=== PATIENT | male | born 1965 | race Caucasian/White ===

== ENCOUNTER 2020-08-24 15:18 | Outpatient (REF) | payer MEDICAID, SELFPAY | END 2020-08-24 15:19 | disposition home or self-care (01) | LOC: HO.LAB 15:18 | PROVIDERS: Visit Provider Internal Medicine | DX: Z20.822 Contact with and (suspected) exposure to COVID-19 (principal) | CPT/HCPCS: 36415; C9803; U0003 ==

== ENCOUNTER 2020-12-03 18:13 | Emergency (ER) | payer MEDICAID, SELFPAY ==
--- NOTE | ~2020-12-03 | CT_ITS ---
EXAMINATION: CT HEAD WITHOUT CONTRAST CLINICAL INFORMATION: TIA with aphasia COMPARISON: 02/24/2011 TECHNIQUE: Contiguous axial imaging was performed from the skull base to vertex without intravenous administration of contrast. This CT examination was performed using dose optimization techniques as appropriate, variously including the following: *Automated exposure control *Adjustment of mA and/or kV according to patient size (this includes techniques or standardized protocols for targeted exams where dose is matched to indication/reason for exam; i.e. extremities or head) *Use of iterative reconstruction technique DLP: 742 mGy-cm FINDINGS: There is no evidence of acute intracranial hemorrhage or territorial infarction. No abnormal mass effect or midline shift is seen. [place]re[place] to white matter differentiation is well preserved. No extra-axial fluid collections are identified. The ventricles are normal in size. There is no abnormal attenuation within the brain parenchyma. The osseous structures and soft tissues are normal. The mastoid air cells and visualized portions of the paranasal sinuses are well aerated. CT/CT head/brain wo con IMPRESSION: No acute intracranial pathology.
[2020-12-03 18:46] VITALS: BP 141/92; PULSE 75; RESP 16; TEMP 37.2; O2SAT 95; BMI 37.0
--- NOTE | 2020-12-03 19:03 | ECG_ITS ---
Test Reason : R/O CVA Blood Pressure : / mmHG Vent. Rate : 068 BPM Atrial Rate : 068 BPM P-R Int : 164 ms QRS Dur : 136 ms QT Int : 420 ms P-R-T Axes : 057 062 008 degrees QTc Int : 446 ms Normal sinus rhythm Right bundle branch block Abnormal ECG No significant changes when compared with the previous EKG of 12 sep 2008 Referred By: Brandon Landis Electronically Signed By:YONATHAN SEGURA
--- NOTE | 2020-12-03 19:05 | ED.NEUROSD ---
HPI - Neuro Symptoms/Deficit General Chief Complaint: Stroke Stated Complaint: ams Time Seen by Provider: 12/03/20 19:03 Source: patient and family Mode of arrival: ambulatory Limitations: language barrier History of Present Illness HPI Narrative: Patient is 55 years old with history of high cholesterol and subdural? Intra cerebral bleed about 6 months ago comes here with according to his since 15:00 patient been confused does not know what is going on has slight slow speech by the time he came here patient aware what is happening now but does not know what happened in last 3 hours no focal deficit was noticed but patient was feeling foggy in his mind no seizures no focal weakness patient ambulated to the ER patient never had similar episodes in the past no headache no nausea no vomiting no chest pain no shortness of breath otherwise patient is feeling fine Related Data Allergies Allergy/AdvReac Type Severity Reaction Status Date / Time No Known Allergies Allergy Mild NONE Unverified 04/19/20 17:14 gemfibrozil Allergy Unknown rash Verified 01/07/19 00:00 [id number]-FNL-PLD reductase AdvReac Unknown transaminit Uncoded 01/07/19 00:00 inhi is Review of Systems Review of Systems: Constitutional : No Weight loss, No Fever, No Chills ENT/Mouth : No sore throat, No Rhinorrhea Eyes: No Eye Pain, No Swelling Cardiovascular : No Chest Pain, no palpitations Respiratory : No Cough, No Sputum, no shortness of breath Gastrointestinal : no Nausea, No Vomiting, No Diarrhea, No abdominal Pain, no black stools Genitourinary : No Dysuria, No Urinary Frequency Musculoskeletal : No joint pain, No Myalgias, No Joint Swelling Skin : No Skin Lesions, No rash Neuro : No Weakness, No Numbness, No Dizziness, No Headache Psych : No Anxiety/Panic, No Depression Heme/Lymph: No Bruising, No Lymphadenopathy Endocrine : No Polyuria, No Polydipsia All other systems reviewed and are negative [facility] Past Medical History Medical History Hypertension Hypothyroid Social History Social History Advance Directives: No Advance Directives Information Provided: Yes Physical Exam Vital Signs: Vital Signs: Last Vital Signs Temp 98.9 F 12/03/20 18:46 Pulse 75 12/03/20 18:46 Resp 16 12/03/20 18:46 BP 141/92 H 12/03/20 18:46 Pulse Ox 95 12/03/20 18:46 Body Mass Index 37.0 Appearance: Alert. Oriented X3. No acute distress. Eyes: PERRLA, No Nystagmus ENT: Pharynx normal. Oral Mucosa moist Neck: Normal inspection. Neck supple. CVS: Normal heart rate and rhythm. Pulses normal. Respiratory: No respiratory distress. Equal air entry bilateral, no wheezing/rales/rhonchi Abdomen: Soft and nontender. Bowel sounds are present, no mass palpable, no CVA tenderness Skin: Skin warm and dry. Normal skin color. Normal skin turgor. Extremities: No lower extremity edema. No calf tenderness Neuro: Oriented X 3. No motor deficit. No sensory deficit.No cerebellar signs , cranial nerves II-XII intact MDM - Neuro Symptoms/Deficit MDM Narrative Medical decision making narrative: Patient's CT scan negative for any acute stroke no focal neurological deficit patient's symptoms likely from global amnesia at this time patient is back to normal will discharge patient home advised to follow with PCP Lab Data Attestation: I reviewed the patient's lab results. Result diagrams: 12/03/20 19:30 12/03/20 19:30 Labs: Lab Results 12/03/20 12/03/20 12/03/20 Range/Units 19:21 19:30 19:30 WBC 10.3 (4.8-10.8) X10*3/uL RBC 4.98 (4.60-5.80) X10*6/uL Hgb 15.9 (14.0-18.0) g/dl Hct 45.8 (42-52) % MCV 92.0 (80-98) fL MCH 31.9 (27.0-33.0) pg MCHC 34.7 (31.0-36.0) g/dl RDW 12.0 (11.0-16.0) % Plt Count 270 (160-400) X10*3/uL MPV 10.2 (9.4-12.4) fL Immature Gran % (Auto) 0.5 H (0.0-0.4) % Neut % (Auto) 59.8 (45-73) % Lymph % (Auto) 31.0 (20-40) % [place] % (Auto) 7.2 (2-11) % Eos % (Auto) 1.0 (0-4) % Baso % (Auto) 0.5 (0-2) % Lymph # (Auto) 3.2 (1.2-4.9) X10*3/uL [place] # (Auto) 0.7 (0.1-1.2) X10*3/uL Eos # (Auto) 0.1 (0.0-0.4) X10*3/uL Baso # (Auto) 0.1 (0.0-0.2) X10*3/uL Abs Immat Gran (auto) 0.05 H (0.00-0.03) X10*3/uL Absolute Neuts (auto) 6.2 (2.0-8.3) X10*3/uL Absolute Nucleated RBC 0.000 (0.0-0.012) X10*3/uL Nucleated RBC % (auto) 0.0 (0.0-0.2) /100WBC PT (10.8-13.0) SEC INR (0.9-1.1) APTT (24.1-38.0) SEC Sodium 140 (135-145) mmol/L Potassium 5.0 (3.3-5.1) mmol/L Chloride 102 (96-108) mmol/L Carbon Dioxide 28 (22-29) mmol/L Anion Gap 15 (12-20) BUN 14 (9-16) mg/dL Creatinine 1.22 (0.5-1.4) mg/dL Estim Creat Clear Calc 76.3 Estimated GFR > 60 POC Glucose 93 (60-115) mg/dL Random Glucose 85 (60-115) mg/dL Calcium 9.5 (8.4-10.2) mg/dL Total Bilirubin 1.2 H (0.0-1.0) mg/dL Direct Bilirubin 0.4 (0.0-0.5) mg/dL AST 65 H (5-37) U/L ALT 61 H (0-40) U/L Alkaline Phosphatase 55 (39-117) U/L Troponin I High Sens (<3.5-35.0) ng/L Total Protein 7.5 (6.5-8.0) g/dL Albumin 4.2 (3.5-5.0) g/dL 12/03/20 12/03/20 Range/Units 19:30 19:30 WBC (4.8-10.8) X10*3/uL RBC (4.60-5.80) X10*6/uL Hgb (14.0-18.0) g/dl Hct (42-52) % MCV (80-98) fL MCH (27.0-33.0) pg MCHC (31.0-36.0) g/dl RDW (11.0-16.0) % Plt Count (160-400) X10*3/uL MPV (9.4-12.4) fL Immature Gran % (Auto) (0.0-0.4) % Neut % (Auto) (45-73) % Lymph % (Auto) (20-40) % [place] % (Auto) (2-11) % Eos % (Auto) (0-4) % Baso % (Auto) (0-2) % Lymph # (Auto) (1.2-4.9) X10*3/uL [place] # (Auto) (0.1-1.2) X10*3/uL Eos # (Auto) (0.0-0.4) X10*3/uL Baso # (Auto) (0.0-0.2) X10*3/uL Abs Immat Gran (auto) (0.00-0.03) X10*3/uL Absolute Neuts (auto) (2.0-8.3) X10*3/uL Absolute Nucleated RBC (0.0-0.012) X10*3/uL Nucleated RBC % (auto) (0.0-0.2) /100WBC PT 12.9 (10.8-13.0) SEC INR 1.1 (0.9-1.1) APTT 32.4 (24.1-38.0) SEC Sodium (135-145) mmol/L Potassium (3.3-5.1) mmol/L Chloride (96-108) mmol/L Carbon Dioxide (22-29) mmol/L Anion Gap (12-20) BUN (9-16) mg/dL Creatinine (0.5-1.4) mg/dL Estim Creat Clear Calc Estimated GFR POC Glucose (60-115) mg/dL Random Glucose (60-115) mg/dL Calcium (8.4-10.2) mg/dL Total Bilirubin (0.0-1.0) mg/dL Direct Bilirubin (0.0-0.5) mg/dL AST (5-37) U/L ALT (0-40) U/L Alkaline Phosphatase (39-117) U/L Troponin I High Sens 4.5 (<3.5-35.0) ng/L Total Protein (6.5-8.0) g/dL Albumin (3.5-5.0) g/dL NIH Stroke Scale Internal: Initial- Upon Arrival Level of Consciousness: Alert Level of Consciousness Questions: Answers both questions correctly Level of Consciousness Commands: Performs both tasks correctly Best Gaze: Normal Visual: No visual loss Facial Palsy: Normal Motor Arm (Right): No drift Motor Arm (Left): No drift Motor Leg (Right): No drift Motor Leg (Left): No drift Limb Ataxia: Absent Sensory: Normal Best Language: No aphasia Dysarthia: Normal Extinction and Inattention: No abnormality Score: 0 Discharge Plan Discharge Clinical Impression: Amnesia, global, transient Patient Disposition: Home, Self-Care Instructions: Transient Global Amnesia (ED) Additional Instructions: Your symptoms likely transient and you will recover slowly. Report to the ER/PCP if any focal weakness speech problems or seizure Es probable que ana maria s?ntomas tena transitorios y se recuperar? lentamente. Informe a la deshawn de emergencias / PCP si presenta alguna debilidad focal, problemas del habla o convulsiones. Print Language: Kiswahili
[2020-12-03 19:25] LABS: Glucose, Whole Blood 93 mg/dL (60-115)
--- NOTE | 2020-12-03 19:30 | PC.NURSE ---
Addendum entered by Devon Ma RN 12/03/20 19:37: pt physical neuro assessment intact. pt able to open and close both eyes on command, able to smile and stick out tongue. no facial drooping noted. pt able to move upper and lower extremities bilaterally and able to squeeze this nurses fingers bilaterally. pt alert and oriented to self and location but not oriented to time. unable to state the day of the week or the year. no slurred speech noted. Original Note: alarm technician at bedside obtaining EKG pt lined and labs sent to lab neuro assessment intact at this time
[2020-12-03 19:39] LABS: MANUAL DIFF FLAG NO
[2020-12-03 19:43] LABS: Basophils Absolute Auto 0.1 X10*3/uL (0.0-0.2); Basophils Percent Auto 0.5 % (0-2); Eosinophils Absolute Auto 0.1 X10*3/uL (0.0-0.4); Hematocrit 45.8 % (42-52); Hemoglobin 15.9 g/dl (14.0-18.0); Imm Gran Abs Auto 0.05 X10*3/uL (0.00-0.03); Imm Gran Pct Auto 0.5 % (0.0-0.4); Lymphocytes Absolute Auto 3.2 X10*3/uL (1.2-4.9); Mean Corpuscular HGB Conc 34.7 g/dl (31.0-36.0); Mean Corpuscular Hemoglobin 31.9 pg (27.0-33.0); Mean Platelet Volume 10.2 fL (9.4-12.4); Monocytes Absolute Auto 0.7 X10*3/uL (0.1-1.2); Monocytes Percent Auto 7.2 % (2-11); Neutrophils Absolute Auto 6.2 X10*3/uL (2.0-8.3); Neutrophils Percent Auto 59.8 % (45-73); Platelet Count 270 X10*3/uL (160-400); Red Blood Count 4.98 X10*6/uL (4.60-5.80); White Blood Count 10.3 X10*3/uL (4.8-10.8)
[2020-12-03 19:51] LABS: INTERNATIONAL NORM RATIO 1.1 (0.9-1.1); Prothrombin Time 12.9 SEC (10.8-13.0)
[2020-12-03 19:54] LABS: Partial Thromboplastin Time 32.4 SEC (24.1-38.0)
[2020-12-03 20:08] LABS: Alanine Aminotransferase 61 U/L (0-40); Albumin Level 4.2 g/dL (3.5-5.0); Alkaline Phosphatase 55 U/L (39-117); Anion Gap 15 (12-20); Aspartate Amino Transferase 65 U/L (5-37); Bilirubin Direct 0.4 mg/dL (0.0-0.5); Bilirubin Total 1.2 mg/dL (0.0-1.0); Blood Urea Nitrogen 14 mg/dL (9-16); Calcium 9.5 mg/dL (8.4-10.2); Carbon Dioxide 28 mmol/L (22-29); Chloride 102 mmol/L (96-108); Creatinine Clr Calc Pharmacy 76.3; Estimated Glomerular Filt Rate > 60; Glucose Random 85 mg/dL (60-115); Sodium 140 mmol/L (135-145); Total Protein 7.5 g/dL (6.5-8.0)
[2020-12-03 20:12] LABS: Troponin-I High Sensitivity 4.5 ng/L (<3.5-35.0)
[2020-12-03 21:27] VITALS: BP 144/99; PULSE 63; RESP 18; O2SAT 98
== END 2020-12-03 21:39 | disposition home or self-care (01) ==
PROVIDERS: Emergency Provider Internal Medicine; PCP Internal Medicine
DX: G45.4 Transient global amnesia (principal)
CPT/HCPCS: 36415; 70450; 80048; 80076; 82947; 84484; 85025; 85610; 85730; 93005; 99284

== ENCOUNTER 2021-01-03 15:38 | Outpatient (REF) | payer MEDICAID, SELFPAY | END 2021-01-03 15:39 | disposition home or self-care (01) | LOC: HO.LAB 15:38 | PROVIDERS: Visit Provider Internal Medicine | DX: Z20.822 Contact with and (suspected) exposure to COVID-19 (principal) | CPT/HCPCS: C9803; U0003; U0005 ==

== ENCOUNTER 2021-01-04 19:21 | Outpatient (REF) | payer MEDICAID, SELFPAY ==
--- NOTE | ~2021-01-04 | MR_ITS ---
EXAMINATION: MR BRAIN WITHOUT AND WITH CONTRAST CLINICAL INFORMATION: 55-year-old with transient global amnesia. COMPARISON: 03/17/2020 CT, 02/24/2011 MRI. TECHNIQUE: Multiplanar, multisequence MRI of the brain/sella was obtained before and after the intravenous administration of 5 mL Gadavist. FINDINGS: Redemonstrated is an enlarged sella turcica, stable from previous study. 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 The pituitary gland enhances along the floor of the sella with a very thin elongated appearance. There is prominence of the optic recess of the anteroinferior third ventricle which is stable. There may be some tethering or traction on the prechiasmatic optic nerves. DWI sequence demonstrates no restricted diffusion. Specifically, there is no evidence for recent or acute infarcts. There are scattered small, nonenhancing T2 hyperintensities in the subcortical white matter of both cerebral hemispheres, largely unchanged from previous exam, which are nonspecific findings. No intracranial mass lesion, abnormal enhancement, extra-axial fluid collections, space-occupying process or mass effect are identified. The ventricular system and subarachnoid spaces are stable in appearance, without hydrocephalus. Normal signal voids are seen in the visualized major intracranial vessels. Small effusion in the right mastoid is stable from previous exam. There is minor mucosal thickening in the ethmoid complex and small retention cysts in the maxillary sinuses, the latter of which are stable. MR/MR head/brain wo/w con IMPRESSION: 1. Scattered nonenhancing nonspecific subcortical white matter T2 hyperintensities in the cerebral hemispheres bilaterally which are stable from previous exam. 2. No intracranial mass lesion, abnormal enhancement, extra-axial fluid collection, space-occupying process or mass effect. 3. 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
== END 2021-01-04 19:22 | disposition home or self-care (01) ==
LOC: HO.MRI 19:21
PROVIDERS: Visit Provider Internal Medicine
DX: G45.4 Transient global amnesia (principal)
CPT/HCPCS: 70553; A9585

== ENCOUNTER 2021-12-19 13:24 | Emergency (ER) | payer MEDICAID, SELFPAY ==
--- NOTE | ~2021-12-19 | CT_ITS ---
EXAMINATION: CT ABDOMEN AND PELVIS WITHOUT CONTRAST CLINICAL INFORMATION: Flank pain COMPARISON: June 06, 2011 TECHNIQUE: Multidetector volumetric imaging was performed from the superior aspect of the liver through the pubic symphysis. Sagittal and coronal reformatted images were obtained on the technologist's workstation. This CT examination was performed using dose optimization techniques as appropriate, variously including the following: *Automated exposure control *Adjustment of mA and/or kV according to patient size (this includes techniques or standardized protocols for targeted exams where dose is matched to indication/reason for exam; i.e. extremities or head) *Use of iterative reconstruction technique DLP: 667 mGy-cm FINDINGS: LUNG BASES: There is bilateral dependent groundglass opacity consistent with atelectasis. Heart normal size. No pericardial effusion. No pleural effusion. LIVER, GALLBLADDER, AND BILIARY TREE: The liver is normal in size, shape, and attenuation. No focal hepatic lesion or biliary ductal dilatation is present. The gallbladder is unremarkable with no evidence of radiopaque gallstones, gallbladder wall thickening, or obvious pericholecystic inflammatory changes. PANCREAS: Unremarkable. No abnormal mass or peripancreatic inflammatory change. SPLEEN: Unremarkable. ADRENAL GLANDS: Unremarkable. KIDNEYS AND URETERS: The kidneys are normal in size, shape, and attenuation. No hydronephrosis, hydroureter, or calculi seen. No perinephric stranding. BLADDER: Unremarkable. GASTROINTESTINAL TRACT: No dilated loops of large or small bowel are evident. No free air or free fluid identified. There is diverticulosis of the colon without evidence of acute diverticulitis. No pericolonic inflammatory changes seen. The appendix is visualized and appears unremarkable. ABDOMINAL WALL: No significant hernia is appreciated. LYMPH NODES: There are some prominent bilateral inguinal lymph nodes present. No peritoneal adenopathy identified. VASCULAR: Unremarkable. PELVIC VISCERA: Unremarkable. OSSEOUS STRUCTURES: There is a mild superior endplate compression fracture of T11 with approximately 20% loss of height. There is degenerative change with spurring seen at T10-T12. The fracture may be chronic. No suspicious destructive bony lesions identified. CT/CT abdomen pelvis wo con IMPRESSION: No evidence of obstructive uropathy or nephrolithiasis. Colonic diverticulosis without evidence of acute diverticulitis. Superior endplate compression fracture of T11 of uncertain duration but likely chronic. Fleischner guidelines were followed.
[2021-12-19 13:57] VITALS: BP 150/81; PULSE 65; RESP 18; TEMP 36.1; O2SAT 100; BMI 38.7
[2021-12-19 14:13] LABS: MANUAL DIFF FLAG NO
[2021-12-19 14:14] LABS: Basophils Percent Auto 0.3 % (0-2); Eosinophils Absolute Auto 0.2 X10*3/uL (0.0-0.4); Eosinophils Percent Auto 2.1 % (0-4); Imm Gran Abs Auto 0.07 X10*3/uL (0.00-0.03); Imm Gran Pct Auto 0.7 % (0.0-0.4); Lymphocytes Absolute Auto 1.9 X10*3/uL (1.2-4.9); Lymphocytes Percent Auto 19.3 % (20-40); Mean Corpuscular HGB Conc 34.8 g/dl (31.0-36.0); Mean Corpuscular Hemoglobin 31.6 pg (27.0-33.0); Mean Corpuscular Volume 90.9 fL (80.0-98.0); Mean Platelet Volume 10.2 fL (9.4-12.4); Monocytes Absolute Auto 0.6 X10*3/uL (0.1-1.2); Monocytes Percent Auto 6.1 % (2-11); Neutrophils Absolute Auto 6.9 x10*3/uL (2.0-8.3); Neutrophils Percent Auto 71.5 % (45-73); Platelet Count 211 X10*3/uL (160-400); Red Blood Count 5.06 X10*6/uL (4.60-5.80); Red Cell Distribution Width 12.8 % (11.0-16.0); White Blood Count 9.7 X10*3/uL (4.8-10.8)
[2021-12-19 14:15] LABS: Appearance Urine HAZY; Glucose Urine UA NEG (NEG); Leukocyte Esterase Urine NEG (NEG); Nitrite Urine NEG (NEG); Urine Blood NEG (NEG); Urine Ketones NEG (NEG); Urine Protein NEG (NEG-TRACE)
[2021-12-19 14:17] LABS: Color Urine YELLOW
[2021-12-19 14:29] LABS: Anion Gap 9 (12-20); Blood Urea Nitrogen 13 mg/dL (9-16); Calcium 9.4 mg/dL (8.4-10.2); Carbon Dioxide 28 mmol/L (22-29); Chloride 105 mmol/L (96-108); Creatinine Clr Calc Pharmacy 81.3; Estimated Glomerular Filt Rate > 60; Glucose Random 164 mg/dL (60-115); Potassium 4.1 mmol/L (3.3-5.1); Sodium 138 mmol/L (135-145)
--- NOTE | 2021-12-19 15:29 | ED_ITS ---
HPI - Abdominal Pain General Chief Complaint: Abdominal Pain Stated Complaint: l side pain Time Seen by Provider: 12/19/21 15:28 Source: patient Mode of arrival: ambulatory Limitations: no limitations History of Present Illness HPI narrative: 56 yo male with history of HLD, panhypopituitary?, adrenal insufficiency who presents to the ER with 4 days of worsening left flank pain. He reports the pain came on gradually and has been worsening for the last 4 days. He reports it is wose with movement, coughing, and palpation. No nausea, vomiting, diarrhea, fever, chills, urinary symptoms. He denies any known injury or heavy lifting. No falls. He denies any chest pain or shortness of breath. MD elicited complaint: flank pain Pertinent past history: none Onset (ago): day(s) (4) Pain Consistency: constant Location: L flank Severity: severe Pain scale (0-10): 8 Quality: sharp Radiation: LUQ Migration to: no migration Exacerbating factors: movement Relieving factors: rest Associated symptoms: denies other symptoms Related Data Previous Rx's Medication Instructions Recorded cyclobenzaprine 10 mg tablet 10 mg PO TID PRN #10 tab 12/19/21 oxycodone 5 mg tablet 5 mg PO TID PRN #7 tab 12/19/21 Allergies Allergy/AdvReac Type Severity Reaction Status Date / Time No Known Allergies Allergy Mild NONE Unverified 04/19/20 17:14 gemfibrozil Allergy Unknown rash Verified 01/07/19 00:00 [id number]-[id number] reductase AdvReac Unknown transaminit Uncoded 01/07/19 00:00 inhi is Review of Systems Review of Systems Constitutional: No Fever, No Chills ENT/Mouth: No sore throat, No Rhinorrhea, No Swallowing Difficulty Cardiovascular: No Chest Pain, No SOB, No Orthopnea, No Edema Respiratory: No Cough, No Sputum, No Wheezing, No dyspnea Gastrointestinal: No Nausea, No Vomiting, No Diarrhea, + abdominal Pain, No Hematochezia, No Melena Genitourinary: No Dysuria, No Urinary Frequency, No Hematuria Musculoskeletal: No joint pain, No Myalgias, +Back pain Skin: No Skin Lesions, No rash Neuro: No Weakness, No Numbness, No Dizziness, No Headache Psych: No Anxiety/Panic, No Depression Heme/Lymph: No Bruising, No Lymphadenopathy Endocrine: No Polyuria, No Polydipsia [facility] Past Medical History Medical History Hypertension Hypothyroid Social History Social History Advance Directives: No Advance Directives Information Provided: No Physical Exam ED Vital Signs: Vital Signs - 24 hr 12/19/21 13:57 Temperature 96.9 F Pulse Rate 65 Respiratory Rate 18 Blood Pressure 150/81 H Pulse Oximetry 100 BMI result Body Mass Index 38.7 Appearance: Alert. Oriented X3. No acute distress. Eyes: Pupils equal, round and reactive to light. ENT: Pharynx normal. Neck: Normal inspection. Neck supple. CVS: Normal heart rate and rhythm. Pulses normal. Respiratory: No respiratory distress. Breath sounds normal. Abdomen: Soft with moderate LUQ tenderness, normal. +BS x4 Back: +CVA tenderness on the left Skin: Skin warm and dry. Normal skin color. Normal skin turgor. No rashes. Extremities: No lower extremity edema. Neuro: Oriented X 3. No motor deficit. No sensory deficit. Course Course Course Narrative: 56-year-old male presents the ER with 4 days of left flank and left upper quadrant pain. No urinary symptoms. No nausea, vomiting, diarrhea, fever, chills. He has tenderness on examination but otherwise appears well. Vital signs are normal. Will get basic lab workup, UA and CT scan for further evalu ation. Reevaluation(s) Reevaluation #1: Urinalysis is negative for infection. His CT scan is showing a chronic T11 mild compression deformity. Otherwise no acute intra-abdominal pathology. He is feeling better after oxycodone. Possible muscular etiology of his pain, we will send home with muscle relaxer and pain medication, encourage follow-up with his primary care doctor as soon as possible. Return precautions were discussed. MDM - Abdominal Pain Lab Data Result diagrams: 12/19/21 14:04 12/19/21 14:04 Labs: Lab Results 12/19/21 12/19/21 12/19/21 Range/Units 14:04 14:04 14:08 WBC 9.7 (4.8-10.8) X10*3/uL RBC 5.06 (4.60-5.80) X10*6/uL Hgb 16.0 (14.0-18.0) g/dl Hct 46.0 (42.0-52.0) % MCV 90.9 (80.0-98.0) fL MCH 31.6 (27.0-33.0) pg MCHC 34.8 (31.0-36.0) g/dl RDW 12.8 (11.0-16.0) % Plt Count 211 (160-400) X10*3/uL MPV 10.2 (9.4-12.4) fL Immature Gran % (Auto) 0.7 H (0.0-0.4) % Neut % (Auto) 71.5 (45-73) % Lymph % (Auto) 19.3 L (20-40) % [place] % (Auto) 6.1 (2-11) % Eos % (Auto) 2.1 (0-4) % Baso % (Auto) 0.3 (0-2) % Lymph # (Auto) 1.9 (1.2-4.9) X10*3/uL [place] # (Auto) 0.6 (0.1-1.2) X10*3/uL Eos # (Auto) 0.2 (0.0-0.4) X10*3/uL Baso # (Auto) 0.0 (0.0-0.2) X10*3/uL Abs Immat Gran (auto) 0.07 H (0.00-0.03) X10*3/uL Absolute Neuts (auto) 6.9 (2.0-8.3) x10*3/uL Absolute Nucleated RBC 0.000 (0.0-0.012) X10*3/uL Nucleated RBC % (auto) 0.0 (0.0-0.2) /100WBC Sodium 138 (135-145) mmol/L Potassium 4.1 (3.3-5.1) mmol/L Chloride 105 (96-108) mmol/L Carbon Dioxide 28 (22-29) mmol/L Anion Gap 9 L (12-20) BUN 13 (9-16) mg/dL Creatinine 1.16 (0.5-1.4) mg/dL Estim Creat Clear Calc 81.3 Estimated GFR > 60 Random Glucose 164 H D (60-115) mg/dL Calcium 9.4 (8.4-10.2) mg/dL Urine Color YELLOW Urine Appearance HAZY Urine pH 6.0 (5.0-8.0) Ur Specific [place] 1.020 (1.005-1.025) Urine Protein NEG (NEG-TRACE) MG/DL Urine Glucose (UA) NEG (NEG) MG/DL Urine Ketones NEG (NEG) MG/DL Urine Blood NEG (NEG) Urine Nitrite NEG (NEG) Ur Leukocyte Esterase NEG (NEG) Critical Care Time Critical Care Time Critical Care Time: No Discharge Plan Discharge Clinical Impression: Abdominal pain Patient Disposition: Home, Self-Care Instructions: Abdominal Pain (ED) Additional Instructions: Your workup today was unremarkable. Your CT scan did not show any acute causes of your pain. Recommend taking the prescribed medications as needed for pain and discomfort. Recommend following up with your doctor as soon as possible. If you develop new or worsening symptoms call 911 or come back to the ER for further evaluation. Prescriptions: New oxycodone 5 mg tablet 5 mg PO TID PRN (Reason: pain) Qty: 7 0RF cyclobenzaprine 10 mg tablet 10 mg PO TID PRN (Reason: muscle spasm) Qty: 10 0RF Referrals: Venkata Moore MD [Primary Care Provider] - (left sided flank and LUQ abd pain) Interventions: ED Discharge Assessment Last Done: 12/19/21 19:26 Discharge Date/Time: 12/19/21 19:29 Print Language: Amharic
[2021-12-19] MEDS: oxyCODONE HCl Immed Release 5 MG TABLET PO (18:14)
== END 2021-12-19 19:29 | disposition home or self-care (01) ==
PROVIDERS: Emergency Provider Emergency Medicine; PCP Internal Medicine
DX: R10.32 Left lower quadrant pain (principal); Z79.899 Other long term (current) drug therapy
CPT/HCPCS: 36415; 74176; 80048; 81003; 85025; 99282; 99284

== ENCOUNTER 2023-12-25 08:20 | Outpatient (REF) | payer MEDICAID, SELFPAY ==
[2023-12-25 11:47] LABS: Estimated Average Glucose 120 mg/dL; Hemoglobin A1c % 5.8 % (<6.0)
[2023-12-25 11:51] LABS: Anion Gap 11 (12-20); Blood Urea Nitrogen 15 mg/dL (9-16); Calcium 9.1 mg/dL (8.4-10.2); Carbon Dioxide 28 mmol/L (22-29); Chloride 106 mmol/L (96-108); Cholesterol 148 mg/dL (<200); Estimated Glomerular Filt Rate > 60; Glucose Random 89 mg/dL (60-115); HDL Cholesterol 37 mg/dL (>40); LDL Cholesterol Calculated 62 mg/dL (<100); Potassium 4.1 mmol/L (3.3-5.1); Sodium 141 mmol/L (135-145); Triglycerides 248 mg/dL (<150)
== END 2023-12-25 08:21 | disposition home or self-care (01) ==
LOC: HO.HHCL 08:20
PROVIDERS: Visit Provider Internal Medicine
DX: Z00.00 Encounter for general adult medical examination without abnormal findings (principal); E78.1 Pure hyperglyceridemia; I10 Essential (primary) hypertension
CPT/HCPCS: 36415; 80048; 80061; 83036

== ENCOUNTER 2024-11-22 08:13 | Outpatient (REF) | payer MEDICAID, SELFPAY ==
--- OUTSIDE RECORDS SUMMARY | 2024-11-22 08:30 | XMS_ITS | Encounter Summary ---
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 Name Role Phone Venkata Aviles MD Primary Care Provide r John Lazar PharmD Unavailable [phone] Paula Reyes PharmD Unavailable [phone] Reason for Visit * Reason Comments Med Refill Encounter Details Date Type Department Care Team (Late st Contact Info) Description 10/20/2022 Refill [facility] [address], [place] [phone] Venkata Aviles MD [address] [place], [place] [phone] Social History Tobacco Use Types Packs/Day Years Used Date Smoking Tobacco: Never Assessed Sex and Gender Information Value Date Recorded Sex Assigned at Male 06/02/2022 10:18 AM EDT Legal Sex Male 10:18 AM EDT Gender Identity Male 06/02/2022 10:18 AM EDT Sexual Orientation Choose not to disclose 2021 10:18 AM EDT documented as of this encounter Plan of Treatment Upcoming Encounters Date Type Department Care Team (Late st Contact Info) Description 12/07/2024 10:30 AM EDT Medication Management [facility] [address], [place] [phone] 01/12/2025 2:00 PM EDT Office Visit [facility] [address] [place], [place] [phone] Pat Brandon, OD [address] [place] [id number] documented as of this encounter Visit Diagnoses Not on filedocumented in this encounter Care Teams Piped Pocket Machine Operator Relationship Specialty Start Date End Date Venkata Aviles MD [address] [place] [phone] PCP - General Internal Medicine 05/17/14 John Lazar, CamachoD [address] [place] [phone] Pharmacist Internal Medicine 12/15/22 11/06/24 Paula Reyes PharmD [address] [place] [phone] Pharmacist Internal Medicine 11/07/24 documented as of this encounter
--- OUTSIDE RECORDS SUMMARY | 2024-11-22 08:30 | XMS_ITS | Encounter Summary ---
Author Organization [employer] Address [address] [facility] [address] [place] [address] Care Team Providers Care Head Scorer Name Role Phone Venkata Aviles MD Primary Care Provide r John Lazar PharmD Unavailable [phone] Paula Reyes PharmD Unavailable [phone] Reason for Visit * Reason Comments Med Refill Encounter Details Date Type Department Care Team (Late Contact Info) Description 10/02/2023 Refill [facility] MED & PEDS [address] [place] [address] Venkata Aviles MD [address] [place], [place] [phone] Primary hypertension Social History Tobacco Use Types Packs/Day Years Used Date Smoking Tobacco: Never Smokeless Tobacco: Never Alcohol Use Standard Drinks/Week Comments Yes 0 (1 standard drink = 0.6 oz pur e alcohol) socially; about 1x month Sex and Gender Information Value Date Recorded Sex Assigned at Male 06/02/2022 10:18 AM EDT Legal Sex Male 10:18 AM EDT Gender Identity Male 06/02/2022 10:18 AM EDT Sexual Orientation Choose not to disclose 2021 10:18 AM EDT documented as of this encounter Plan of Treatment Upcoming Encounters Date Type Department Care Team (Late Contact Info) Description 12/07/2024 10:30 AM EDT Medication Management [facility] MEDICINE [address] [place], [place] [phone] 01/12/2025 2:00 PM EDT Office Visit [facility] [address] [place], [place] [phone] Pat Brandon, OD [address] [place] [address] documented as of this encounter Goals Goal Patient Goal Type Associated Problems Recent Progress Patient-Stated? Author Blood Pressure < 140/90 Blood Pressure Benign hypertension 148/90(2024 11:22 AM EDT) No John Lazar, PharmRaheem documented as of this encounter Visit Diagnoses Diagnosis Primary hypertension Unspecified essential hypertension documented in this encounter Care Teams Head Scorer Relationship Specialty Start Date End Date Venkata Aviles MD [address] [place] [address] PCP - General Internal Medicine 05/17/14 John Lazar, PharmD [address] [place] [address] Pharmacist Internal Medicine 12/15/22 11/06/24 Paula Reyes, CamachoD [address] [place], [place] [phone] Pharmacist Internal Medicine 11/07/24 documented as of this encounter
--- OUTSIDE RECORDS SUMMARY | 2024-11-22 08:30 | XMS_ITS | Encounter Summary ---
Author Organization [employer] Address [address] [place] [address] Care Team Providers Care Patient Transition Specialist Name Role Phone Venkata Aviles MD Primary Care Provide r John Lazar PharmD Unavailable [phone] Paula Reyes PharmD Unavailable [phone] Reason for Visit * Reason Comments Med Refill Encounter Details Date Type Department Care Team (Late st Contact Info) Description 06/02/2024 Refill [facility] MEDICINE [address] [place] [address] Princess Munoz MD [address] [place] [address] Hypertriglyceridemia Social History Tobacco Use Types Packs/Day Years [...] AM EDT documented as of this encounter Miscellaneous Notes * Telephone Encounter - Venkata Warren MD - 06/02/2024 11:32 AM EDT I have not seen patients in 2 years, Pt needs to make an appointment to be seen. documented in this encounter Plan of Treatment Upcoming Encounters Date Type Department Care Team (Late st Contact Info) Description 12/07/2024 10:30 AM EDT Medication Management [facility] MEDICINE [address] [place] [address] 01/12/2025 2:00 PM EDT Office Visit [facility] OPTOMETRY [address] [place] [address] Aleksandr, Pat, OD [address] [place] [address] documented as of this encounter Goals Goal Patient Goal Type Associated Problems Recent Progress Patient-Stated? Author Blood Pressure < 140/90 Blood Pressure Benign hypertension 148/90(2024 11:22 AM EDT) No John Lazar, Keith documented as of this encounter Visit Diagnoses Diagnosis Hypertriglyceridemia Pure hyperglyceridemia documented in this encounter Care Teams Patient Transition Specialist Relationship Specialty Start Date End Date Venkata Aviles MD [address] [place] [address] PCP - General Internal Medicine 05/17/14 John Lazar, PharmD [address] [place] [phone] Pharmacist Internal Medicine 12/15/22 11/06/24 Paula Reyes PharmD [address] [place] [phone] Pharmacist Internal Medicine 11/07/24 documented as of this encounter
--- OUTSIDE RECORDS SUMMARY | 2024-11-22 08:30 | XMS_ITS | Clinical Summary ---
Author Organization [employer] Address [address] [place] [address] [address] [place] [address] Care Team Providers Care Vegetable Preparer Name Role Phone Venkata Aviles MD Primary Care Provide r Paula Reyes PharmD Unavailable [phone] Allergies Active Allergy Reactions Criticality Noted Date Comments Gemfibrozil Rash Low Statins Other reaction(s): transaminitis Medications hydrocortisone (Cortef) 10 MG tablet PLEASE SEE ATTACHED FOR DETAILED DIRECTIONS 022 Active B-D UF III MINI PEN NEEDLES 31G X 5 MM misc USE WITH GENOTROPIN PEN AND CARTRIDGE FOR DAILY INJECTIONS 023 Active levothyroxine (Synthroid, Levoxyl) 100 MCG tablet TOME MARGO TABLETA TODOS LOS D EN LA MA TRINY 30 MINS BEFORE DRINK/FOOD 023 Active metoprolol tartrate (Lopressor) 25 MG tablet TOME MARGO TABLETA DOS VECES AL D A CON ALIMENTO 023 Active Genotropin 5 MG cartridge INJECT 0.2 MG SUBCUTANEOUS EVERY DAY 023 Active AndroGel Pump 20.25 MG/ACT (1.62%) gel PLACE 2 PUMPS TO ONE SHOULDER AND 1 PUMP TO THE OTHER SHOULDER ONCE DAILY IN THE MORNING 023 Active lisinopril 40 MG tabletIndicatio ns:Primary hypertension TAKE 1 TABLET BY MOUTH EVERY DAY 90 tablet 3 024 Active fenofibrate micronized (Lofibra) 134 MG capsuleIndicati ons:Hypertrigly ceridemia TAKE 1 CAPSULE BY MOUTH EVERY DAY 90 capsule 1 024 Active cholecalciferol VITAMIN D (Vitamin D-3) 50 MCG (2000 UT) capsule Take 2,000 Units by mouth Once per day. 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 Pts friend brought him home. According to pt was crying because he did not remember anything that happened that morning. He was transported to the ER but pt does not remember anything that happened including how he got to the ER or what happened in the ER. In the ER pt had a Brain CT that per ER report showed no acute finding At our last televisit he told me he was back to normal, although still does not recall what happenned for a period of several hours on 12/03/2020 Etiology? TGA ? TIA? VS Lacuna Infarct ? VS epilepsy ? Last visit I recommended a Neurology Evaluation and an MRI of Brain MRI was done 01/04/2021 and showed: 1. Scattered nonenhancing nonspecific subcortical white matter T2 hyperintensities in the cerebral hemispheres bilaterally which are stable from previous exam. 2. No intracranial mass lesion, abnormal enhancement, extra-axial fluid collection, space-occupying process or mass effect. 3. 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 Back then he told me he had an appointment with Neurology scheduled for January 18 but he had to leave for [place] and he was going to call and reschedule the appointment. denies any further episodes. We contacted the office of his Neurologist and asked them to review his MRI and schedule a f/u visit to address the issue of TGA. The Dr review the MRI and told his staff that it was not urgent so they were going to contact patient for a f/u appointment Pt was seen and they ordered an EEG to r/o seizure disorder. Records requested Chronic subdural hematoma 06/16/2024 Assessment & Plan (06/16/2024 11:43 AM EST): Previously diagnosed with this at [facility] Unclear etiology, pt did not recall any recent head trauma , although he believes he might have had a head trauma years ago ( details are vague ) He denies, any weakness, no numbness, no slurred speech. Pt no longer on Keppra 500 mg po BID per Neurosurgery recommendations Pt had a repeat non contrast Brain CT 04/26/[address] Shakeel Maza that was read as NORMAL Per pts report he was seen by Dr Maza who Instructed pt that if he had any recurrence of symptoms to present himself immediately to [facility] ER. otherwise he recommended no further intervention Other osteoporosis without current pathological fracture 06/16/2024 Assessment & Plan (06/16/2024 11:47 AM EST): DEXA done at [facility] 09/02/13 showed osteopetrosis at L1-L4 with T-score of -2.8. On vitamin D and will follow with endocrinology. Acquired hypothyroidism 06/16/2024 Assessment & Plan (06/16/2024 11:55 AM EST): On levothyroxine 100 mcg daily, under the care [place] [facility] [place] Preventative health care 12/15/2022 Assessment & Plan (06/16/2024 12:04 PM EST): ROSALINA: 10/31/2014 Normal Colonoscopy: Hx of Tubular adenoma Last colonoscopy in 2012 NL ,5 year f/u. Pt was scheduled last visit he missed the appointment. Pt refuses to have it done. Assessment & Plan (12/15/2022 2:57 PM EDT): - Due for Shingrix #2 (administered today) - Due for Tdap; scheduled for next month 01/15 9:00 AM - A1c ordered Central hypogonadism 12/23/2018 Assessment & Plan (06/16/2024 11:56 AM EST): On Androgel 1.62% with 3 pumps daily Schizoaffective disorder, depressive type 2018 Assessment & Plan (06/16/2024 11:38 AM EST): Under the care of N, He follows with [facility] for his Hx of Depression I had been prescribing Ambien 5mg to use as needed. Cardiomyopathy 05/04/2018 Assessment & Plan (06/16/2024 12:02 PM EST): EKG showed RBBB and flat and inverted T waves in lateral leads . Given his Hx of Muscular dystrophy I referred patient to Cardiology for evaluation. He was last seen 03/10/2024. Cardiomyopathy likely nonischemic in the setting of muscular dystrophy. [facility] recommended Cardiac MRI and f/u with Dr Simon after testing. Given his hx of muscular dystrophy and biopsy findings stock holder recommended against statins. There was also a question of ASD L to R shunt by doppler on ECHO they recommended to repeat ECHO with bubble study in 3 months. He had it done 09/14/2018 and ECHO showed NO intracardiac shunt. Pt to continue to follow with Cardiology, pt was last seen 03/10/2024 Muscular dystrophy 11/05/2017 Assessment & Plan (06/16/2024 11:41 AM EST): Seen by Neurology last note on reconrd 08/24/2020 with no change in his strength. Muscle biopsy with rare rimed vacuoles. He recommended yearly EKGs and 1 to 2 years f/u with them. Record requested Obstructive sleep apnea syndrome 08/27/2017 Assessment & Plan (06/16/2024 11:46 AM EST): Confirmed with Sleep study. Cpap machine use oer his report Right hydrocele 05/10/2015 Assessment & Plan (06/16/2024 11:47 AM EST): Repeat Testicular U/S done on 11/2014showed large hydrocele and calcifications. Pt has never had a formal urologic consultation so pt was referred, unclear if he kept the appointment Hypertriglyceridemia 05/20/2013 Assessment & Plan (06/16/2024 11:49 AM EST): Patient with elevated lipids. Most recent lipid profile from: Lab Results Component Value Date TRIG 248 (H) 12/25/2023 CHOL 148 12/25/2023 LDLCHOLCAL 62 12/25/2023 HDL 37 (L) 12/25/2023 He is on a regimen of: Fenofibrate 145 mg po daily. advised to try to adhere to a low cholesterol diet, counseled and educated about diet and exercise. Empty sella syndrome 08/04/2012 Assessment & Plan (06/16/2024 11:54 AM EST): Followed by Endocrinology with empty sella. Pt is taking Hydrocortisone 10 mg BID and is aware of need of stress doses if illness. MRI done on 03/16/2024 shows chronic expanded empty sella turcica with prolapse of the optic chiasm unchanged from exam at [facility] with empty sella turcica, probable 11mm cyst in posterior inferior sella which could be within the pituitary gland, and prolapse of the optic chiasm into the sella turcica. Cosyntropin stimulation was normal Last seen 09/14/2019 6 month f/u was recommended. Tubular adenoma of colon 08/04/2012 Assessment & Plan (06/16/2024 11:44 AM EST): Most recent Colonoscopy done 11/16/12 was normal, to repeat in 5-10 years. Previous Colonoscopy in October of 2004 showed an adenomatous polyp. Colonoscopy 11/09/07 showed a hyperplastic polyp. Pt is overdue given current recommendations. Last visit we scheduled an appointment he did not go. Pt does not want to have it repeated until 2022 ( 10 yrs _ verbalizes understanding of risks of not having it done in the recommended time given his Hx. Benign hypertension 02/11/2012 Overview (12/21/2023): Pharmacotherapy: Updated 12/21/23 - Metoprolol tartrate 25mg twice daily - Lisinopril 40mg daily History: Updated 12/21/23 Started CDTM 05/2022. Comorbidities include cardiomyopathy, right bundle branch block (followed by cardiology); hypopituitary/hypoglucocorticoid. Treated with Genotropin. (at last visit; patient was unable to administer) Assessment & Plan (06/16/2024 11:37 AM EST): Patient here for a follow up after a long hiatus BP elevated He is supposed to be on a regimen of: Lisinopril 40 mg po daily. and Metoprolol 25 mg po BID prescribed by [facility] Plan: Continue with current regimen Most recent electrolytes, Bun and Creatinine done on: Lab Results Component Value Date NA 141 12/25/2023 NA 140 12/22/2022 K 4.1 12/25/2023 K 4.8 12/22/2022 CL 106 12/25/2023 CL 104 12/22/2022 BUN 15 12/25/2023 BUN 16 12/22/2022 CREATININE 1.15 12/25/2023 CREATININE 1.15 12/22/2022 were within normal limits. patient advised to adhere to a low sodium diet, encouraged about medication compliance, counseled about weight loss. 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 Generalized osteoarthritis 10/14/2011 Recurrent major depression 10/14/2011 Encounters Date Type Department Care Team Description 11/07/2024 Travel 10/18/2024 Orders Only [facility] MEDICINE [address] [place] [address] Venkata Aviles MD Benign hypertension (Primary Dx) 10/18/2024 Telephone [facility] MEDICINE [address] [place] [address] Venkata Aviles MD 10/14/2024 Population Health Risk Score [facility] () [address] [address] Provider, Population Health Generic from Last 3 Months Immunizations Name Administration Dates Next Due Hep A, Adult 12/14/2008,06/01/2008 Hep B, adult 02/27/2009,09/14/2008,06/01/2008 Influenza injectable quadriv alent IIV4 with preservative 05/04/2018,08/27/2017,06/03/2016,2014 Influenza injectable quadriv alent preservative free 04/30/2021,08/23/2019 Influenza, IIV3, injectable 07/04/2014 MMR 05/16/2005 Pneumococcal Conjugate PCV 20 11/07/2024 TD (adult), 2 Lf tetanus tox oid, preservative free, adsorbed 05/16/2005 Tdap 01/15/2023,12/07/2012 Zoster, Recombinant 12/15/2022,05/19/2022 Family History Medical History Relation Name Comments Heart attack Father Heart attack Mother Relation Name Status Comments Father Mother Social History Tobacco Use Types Packs/Day Years Used Date Smoking Tobacco: Never Passive Smoke Exposure: Never Smokeless Tobacco: Never Tobacco Cessation:Counseling Given: Not Answered Alcohol Use Standard Drinks/Week Comments Yes 0 (1 standard drink = 0.6 oz pur e alcohol) socially; about 1x month Alcohol Answer Date Recorded How often do you have a drink containing alcohol ? 1 06/16/2024 How many drinks containing a lcohol do you have on a typical day when you are drinking? 2 06/16/2024 How often do you have six or more drinks on one occasion? 1 06/16/2024 Depression Answer Date Recorded Patient Health Questionnaire-9 Score 0 06/16/2024 Patient Health Questionnaire-9 Score 0 06/16/2024 Last PHQ-9: Questionnaire Data Not on file 1 08/16/2023 Housing Stability Answer Date Recorded What is your housing situation today? I have gregorio arechiga 06/16/[address] you li ve. Do you have problems with any of the following? None of the above 06/16/2024 Food Insecurity Answer Date Recorded Within the past 12 months, y ou worried that your food would run out before you got money to buy more: Never True 06/16/2024 Within the past 12 months,th e food you bought just didn't last and you didn't have enough money to get more: Never True Transportation Answer Date Recorded In the past 12 months, has l ack of transportation kept you from medical appts, meetings, work or from getting things needed for daily living? No 06/16/2024 Utilities Answer Date Recorded In the past 12 months, has t he electric, gas, oil or water company threatened to shut off services in your home? No 06/16/2024 Depression Answer Date Recorded Patient Health Questionnaire-2 Score 0 06/16/2024 Internet Access Answer Date Recorded Internet Access Q1 Yes 06/16/2024 Internet Access Q2 Not on file 06/16/2024 Sex and Gender Information Value Date Recorded Sex Assigned at Male 06/02/2022 10:18 AM EDT Legal Sex Male 10:18 AM EDT Gender Identity Male 06/02/2022 10:18 AM EDT Sexual Orientation Choose not to disclose 2021 10:18 AM EDT Last Filed Vital Signs Vital Sign Reading Time Taken Comments Blood Pressure 148/90 11/07/2024 11:22 AM EDT Pulse 62 10/18/2024 11:23 AM EDT Per Cardiology note Temperature 36.8 ??C (98.2 ??F) 06/16/2024 1 1:30 AM EST Respiratory Rate 20 06/16/2024 11:3 0 AM EST Oxygen Saturation 99% 06/16/2024 11: 30 AM EST Inhaled Oxygen Concentration - - Weight 109 kg (240 lb 9.6 oz) 06/16/2024 11:30 AM EST Height 167.6 cm (5' 6 ) 06/16/2024 11:3 0 AM EST Body Mass Index 38.83 06/16/2024 11:30 AM EST Plan of Treatment Upcoming Encounters Date Type Department Care Team (Late st Contact Info) Description 12/07/2024 10:30 AM EDT Medication Management [facility] MEDICINE [address] [place] [address] 01/12/2025 2:00 PM EDT Office Visit [facility] OPTOMETRY [address] [place] [address] Pat Brandon, OD [address] [place] [address] Health Maintenance Due Date Last Done Comments CT Colonography 1964 Colonoscopy 1964 Colorectal Cancer Screening 1964 FIT DNA/Cologuard 1964 FIT 1964 FOBT 1964 HIV Screening 1964 Sigmoidoscopy 1964 Hepatitis C Screening 1982 COVID-19 Vaccine ( season) 2024 07/01/2021, 12/25/2020, 11/25/2020 Influenza Vaccine (#1) 2024 , 08/23/2019, 05/04/2018, Additional history exists Diabetes: Hemoglobin A1C 12/24/2024 12/25/2023, 12/02 Alcohol/Substance Use Screening 06/16/2025 06/16/2024 Depression Screening 06/16/2025 06/16/2024, 06/16/20 SDOH Screening 06/16/2025 06/16/2024 Tobacco Screening 11/07/2025 11/07/2024 Lipid Panel 12/24/2028 12/25/2023, 01/02, 10/17/2020 DTaP/Tdap/Td Vaccines (3 - Td or Tdap) 01/15/2033 01/15/2023, 12/07/2012, 05/16/2005 RSV Patients and Patients Aged 60 years or older (1 - 1-dose 75+ series) 10/23/2039 Hepatitis A Vaccines Aged Out 12/14/2008, 06/01/20 08 No longer eligible based on patient's age to complete this topic Hepatitis B Vaccines Completed 02/27/2009, 09/14/2008, 06/01/2008 Zoster Vaccines Completed 12/15/2022, 05/19/2022 Pneumococcal Vaccine: 50+ Years Completed 11/07/2024 HIB Vaccines Aged Out No longer eligi ble based on patient's age to complete this topic HPV Vaccines Aged Out No longer eligi ble based on patient's age to complete this topic IPV Vaccines Aged Out No longer eligi ble based on patient's age to complete this topic Meningococcal Vaccine Aged Out No rajesh ary eligible based on patient's age to complete this topic RSV under 20 months Aged Out No longe r eligible based on patient's age to complete this topic Rotavirus Vaccines Aged Out No longer eligible based on patient's age to complete this topic Goals Goal Patient Goal Type Associated Problems Recent Progress Patient-Stated? Author Blood Pressure < 140/90 Blood Pressure Benign hypertension 148/90(2024 11:22 AM EDT) No John Lazar PharmD Procedures Procedure Name Priority Date/Time Associated Diagnosis Comments HEMOGLOBIN A1C Routine 12/25/2023 8:21 AM EDT LIPID PANEL, STANDARD Routine 12/25/2023 8:21 AM EDT from Last 3 Months or Most Recently Relevant to Health Maintenance Results * Hemoglobin A1c (12/25/2023 8:21 AM EDT) Hemoglobin A1c 5.8 <6.0 % [facility] Comment:Hemoglobin A1C Refer ence Range Adults: 4.8 - 6.0 % Non diabetic: < 6.0 % Goal: < 7.0 %Additional Action Suggested: > 8.0 %Note: Hemoglobin A1c results are invalid for patients with abnormal amounts of HbF. Blood transfusions may impact the HbA1c concentration in the patient sample. Estimated Average Glucose 120 mg/dL [facility] Comment:eAG = Estimated ave rage glucose which is %A1C expressed asaverage glucose, using the formula of the K3H-VphbtusTeiurom Glucose study (ADAG), Diabetes Care, Vol.31,#8,Mar. 2007 12/25/2023 8:21 AM EDT 12/25/2023 11:16 AM EDT us Venkata Warren MD LAB BLOOD ORDERABLES Final Result [facility] [address] [place] [phone] * (ABNORMAL) Lipid Panel, Standard (12/25/2023 8:21 AM EDT) Triglycerides 248(H) <150 mg/dL [facility] Comment:Desirable Triglyceri de: less than 150 mg/dLBorderline High Triglyceride 150-199 mg/dLHigh Triglyceride: 200-499 mg/dLVery High Triglyceride: greater than or equal to 5OO mg/dL Cholesterol 148 <200 mg/dL [facility] Comment:Desirable Cholestero l: less than 200 mg/dLBorderline High Cholesterol: 200-239 mg/dLHigh Cholesterol: greater than 239 mg/dL LDL Cholesterol Calculated 62 <100 mg/dL [facility] Comment:Desirable LDL: less than 100 mg/dLNear Optimal/Above Optimal LDL: 110- 129 mg/dLBorderline High LDL: 130-159 mg/dLHigh LDL: 160-189 mg/dLVery High LDL: greater than or equal to 190 mg/dL HDL Cholesterol 37(L) >40 mg/dL [facility] Comment:Desirable HDL: great er than 40 mg/dL Note: This HDL assay may give artificially low results in patients with liver disease. 12/25/2023 8:21 AM EDT 12/25/2023 11:11 AM EDT us Venkata Warren MD LAB BLOOD ORDERABLES Final Result [facility] [address] [place] [address] [phone] from Last 3 Months or Most Recently Relevant to Health Maintenance Insurance [facility] C3 Care Teams Vegetable Preparer Relationship Specialty Start Date End Date Venkata Aviles MD [address] [place] [address] PCP - General Internal Medicine 05/17/14 Paula Reyes PharmD [address] [place] [address] Pharmacist Internal Medicine 11/07/24
[2024-11-22 11:54] LABS: Anion Gap 10 (12-20); Blood Urea Nitrogen 11 mg/dL (9-16); Calcium 8.8 mg/dL (8.4-10.2); Carbon Dioxide 26 mmol/L (22-29); Chloride 108 mmol/L (96-108); Estimated Glomerular Filt Rate > 60; Glucose Random 94 mg/dL (60-115); Potassium 3.9 mmol/L (3.3-5.1); Sodium 140 mmol/L (135-145)
== END 2024-11-22 08:14 | disposition home or self-care (01) ==
LOC: HO.HHCL 08:13
PROVIDERS: Visit Provider Pharmacist
DX: I10 Essential (primary) hypertension (principal)
CPT/HCPCS: 36415; 80048

== ENCOUNTER 2025-07-03 08:06 | Outpatient (REF) | payer MEDICAID, SELFPAY ==
--- OUTSIDE RECORDS SUMMARY | 2025-07-03 08:15 | XMS_ITS | Clinical Summary ---
Author Organization [employer] Address [address] [facility] 7t [place] [address] Care Team Providers Care Wiping Cloth Cutter Name Role Phone Venkata Aviles MD Primary Care Provide r Allergies Active Allergy Reactions Criticality Noted Date [...] ONCE DAILY IN THE MORNING 023 Active cholecalciferol VITAMIN D (Vitamin D-3) 50 MCG (1999 UT) capsule Take 2,000 Units by mouth Once per day. 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 Records requested Chronic subdural hematoma (CMS/HCC) 06/16/2024 Assessment & Plan (06/16/2024 11:43 AM EST): Previously [place] with [place] [facility] Unclear etiology, pt did not recall any [...] of symptoms to present himself immediately to [facility]. otherwise he recommended no further intervention Other osteoporosis without current pathological fracture 06/16/2024 Assessment & Plan (06/16/2024 11:47 AM EST): DEXA done at [facility] 09/02/13 showed osteopetrosis at L1-L4 with T-score of -2.8. On vitamin D and will follow with endocrinology. Acquired hypothyroidism 06/16/2024 Assessment & Plan (06/27/2025 10:47 AM EST): On levothyroxine 100 mcg daily, under the care of [facility] endocrinology Records requested Assessment & Plan (06/16/2024 11:55 AM EST): On levothyroxine 100 mcg daily, under the care of [facility] endocrinology Preventative health care 12/15/2022 Assessment & Plan (06/27/2025 11:07 AM EST): PSA ordered Colonoscopy: Hx of Tubular adenoma Last colonoscopy in 2012 NL ,5 year f/u. Pt was scheduled last visit he missed the appointment. Pt refuses to have a colonoscopy but agrees to do a Cologuard Screening for colon cancer: - Colonoscopy last performed in 2012. Patient declined colonoscopy at this time due to discomfort and concerns with anesthesia. Agreed to alternative stool-based screening. - Ordered stool-based colon cancer screening test to be delivered to home. Discussed logistics of delivery and potential issues with package theft. Will inquire with nurse regarding alternative delivery options if needed. - Risks and side effects: Discussed that stool-based test is not 100% sensitive, may miss small tumors, and may yield false positives requiring colonoscopy. Routine laboratory monitoring: - Ordered routine blood tests including glucose, cholesterol, liver function, renal function, and thyroid function. Instructed to present fasting for laboratory testing. Provided information on laboratory hours and location. Medication management: - Will renew lisinopril prescription. Confirmed patient has sufficient supply of other medications except vitamin D, which is managed by another provider. Follow-up: - Scheduled follow-up appointment in 3 months. 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 Assessment & Plan (06/16/2024 11:38 AM EST): Under the care of N, He follows with Prince Sargent for his Hx of Depression I had been prescribing Ambien 5mg to use as needed. Cardiomyopathy 05/04/2018 Assessment & Plan (06/27/2025 11:06 AM EST): Pt here for a follow up Previous EKG showed RBBB and flat and inverted T waves in lateral leads . Given his Hx of Muscular dystrophy I referred patient to Cardiology for evaluation. He was last seen 03/10/2024. Cardiomyopathy likely nonischemic in the setting of muscular dystrophy. Wheel Roller recommended Cardiac MRI and f/u with Dr Simon after testing. Given his hx of muscular dystrophy and biopsy findings spray gun operator recommended against statins. There was also a question of ASD L to R shunt by doppler on ECHO they recommended to repeat ECHO with bubble study in 3 months. He had it done 09/14/2018 and ECHO showed NO intracardiac shunt. Pt to continue to follow with Cardiology, pt was last seen 10/19/2024 who recommended to repeat ECHO - Cardiology follow-up to be done in [place] as discussed. Assessment & Plan (06/16/2024 12:02 PM EST): EKG showed RBBB and flat and inverted T waves in lateral leads . Given his Hx of Muscular dystrophy I referred patient to Cardiology for evaluation. He was last seen 03/10/2024. Cardiomyopathy likely nonischemic in the setting of muscular dystrophy. Wheel Roller recommended Cardiac MRI and f/u with Dr Simon after testing. Given his hx of muscular dystrophy and biopsy findings spray gun operator recommended against statins. There was also a question of ASD L to R shunt by doppler on ECHO they recommended to repeat ECHO with bubble study in 3 months. He had it done 09/14/2018 and ECHO showed NO intracardiac shunt. Pt to continue to follow with Cardiology, pt was last seen 03/10/2024 Muscular dystrophy 11/05/2017 Assessment & Plan (06/27/2025 10:49 AM EST): Here for a follow up Seen by Neurology last note on record 08/24/2020 with no change in his strength. Muscle biopsy with rare rimed vacuoles. He recommended yearly EKGs and 1 to 2 years f/u with them. Record requested again Assessment & Plan (06/16/2024 11:41 AM EST): [...] the appointment Hypertriglyceridemia 05/20/2013 Assessment & Plan (06/27/2025 10:46 AM EST): Patient with elevated lipids. Most recent lipid profile from: Lab Results Component Value Date TRIG 248 (H) 12/25/2023 CHOL 148 12/25/2023 LDLCHOLCAL 62 12/25/2023 HDL 37 (L) 12/25/2023 He is on a regimen of: Fenofibrate 145 mg po daily. Will repeat Lipid profile and LFTs advised to try to adhere to a low cholesterol diet, counseled and educated about diet and exercise. Assessment & Plan (06/16/2024 11:49 AM EST): [...] Empty sella syndrome 08/04/2012 Assessment & Plan (06/27/2025 10:48 AM EST): Followed by Endocrinology with empty sella. Pt is taking Hydrocortisone 10 mg BID and is aware of need of stress doses if illness. 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 Pt is taking Hydrocortisone 10 mg BID and is aware of need of stress doses if illness. 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 and Metoprolol 25 mg po BID prescribed by Wheel Roller Plan: Continue with current regimen Most recent electrolytes, Bun and Creatinine done on: Lab Results Component Value Date NA 140 11/22/2024 NA 141 12/25/2023 K 3.9 11/22/2024 K 4.1 12/25/2023 CL 106 12/25/2023 CL 104 12/22/2022 BUN 11 11/22/2024 BUN 15 12/25/2023 CREATININE 0.92 11/22/2024 CREATININE 1.15 12/25/2023 were within normal limits. patient advised to adhere to a low sodium diet, encouraged about medication compliance, counseled about weight loss. 3 month f/u Assessment & Plan (06/16/2024 11:37 AM EST): Patient here for a follow up after a long hiatus BP elevated He is supposed to be on a regimen of: Lisinopril 40 mg po daily. and Metoprolol 25 mg po BID prescribed by Wheel Roller Plan: Continue with current regimen Most recent [...] Generalized osteoarthritis 10/14/2011 Recurrent major depression 10/14/2011 Assessment & Plan (06/27/2025 2:40 PM EST): Under the care of N, He follows with Prince Sargent for his Hx of Depression I had been prescribing Ambien 5mg to use as needed. Encounters Date Type Department Care Team Description 06/27/2025 10:30 AM EST Office Visit [facility] [address] [place] [phone] Venkata Aviles MD Cardiomyopathy, unspecified type (CMS/HCC) (HCC) (Primary Dx); Hypertriglyceridemia; Benign hypertension; Acquired hypothyroidism; Schizoaffective disorder, depressive type (CMS/HCC) (HCC); Empty sella syndrome (CMS/HCC); Muscular dystrophy (HCC); Preventative health care; Screening for colon cancer; Primary hypertension; Mild episode of recurrent major depressive disorder (CMS/HCC); Secondary male hypogonadism; Hypopituitarism (CMS/HCC) 06/27/2025 Telephone [facility] [address] [place] [phone] Venkata Aviles MD Cologuard 06/27/2025 Travel 06/22/[address] [address] Venkata Aviles MD CHART PREP 06/19/2025 Patient Outreach [address] [address] Venkata Aviles MD Pre-visit Planning (Pre-visit planning - LVM ) 04/21/2025 11:30 AM EDT Office Visit [facility] [address] [place] [address] Pat Brandon, OD Glaucoma suspect of both eyes (Primary Dx) 04/21/2025 Travel 04/17/2025 10:30 AM EDT Telemedicine [facility] [address] [place] [address] Paula Reyes PharmD Benign hypertension (Primary Dx) 04/17/2025 Abstract [facility] [address] [place] [address] Paula Reyes PharmD from Last 3 Months Immunizations Immunization Administration Dates Next Due Hep A, Adult [...] drink = 0.6 oz pur e alcohol) 1x week on Saturdays Alcohol Answer Date Recorded How often do you have a drink containing alcohol ? 1 06/16/2024 How many drinks containing a lcohol do you have on a typical day when you are drinking? 2 06/16/2024 How often do you have six or more drinks on one occasion? 1 06/16/2024 Depression Answer Date Recorded Patient Health Questionnaire-9 Score 7 06/27/2025 Patient Health Questionnaire-9 Score 7 06/27/2025 Last PHQ-9: Questionnaire Data Not on file 1 08/27/2024 Housing Stability Answer Date Recorded What is your housing situation today? I have gregorio arechiga 06/27/[address] you li ve. Do you have problems with any of the following? None of the above 06/27/2025 Food Insecurity Answer Date Recorded Within the [...] getting things needed for daily living? No 06/27/2025 Utilities Answer Date Recorded In the past 12 months, has t he electric, gas, oil or water company threatened to shut off services in your home? No 06/27/2025 Depression Answer Date Recorded Patient Health Questionnaire-2 Score 3 06/27/2025 Internet Access Answer Date Recorded Internet Access Q1 Yes 06/27/2025 Internet Access Q2 Not on file 06/27/2025 Sex and Gender Information Value Date Recorded Sex Assigned at Male 06/02/2022 10:18 AM EDT Legal Sex Male 10:18 AM EDT Gender Identity Male 06/02/2022 10:18 AM EDT Sexual Orientation Choose not to disclose 2021 10:18 AM EDT Last Filed Vital Signs Vital Sign Reading Time Taken Comments Blood Pressure 138/74 06/27/2025 10:50 AM EST Pulse 65 06/27/2025 10:33 AM EST Temperature 36.1 C (97 F) 06/27/2025 10:33 AM EST Respiratory Rate 16 06/27/2025 10:33 AM EST Oxygen Saturation 99% 06/16/2024 11:30 AM EST Inhaled Oxygen Concentration - - Weight 109 kg (241 lb 6.4 oz) 06/27/2025 10:33 A M EST Height 167.6 cm (5' 6 ) 06/27/2025 10:33 AM EST Body Mass Index 38.96 06/27/2025 10:33 AM EST Plan of Treatment Upcoming Encounters Date Type Department Care Team (Late st Contact Info) Description 08/23/2025 11:30 AM EST Office Visit [facility] [address] [place] [address] Aleksandr, Pat, OD [address] [place] [address] 09/28/2025 11:15 AM EST Office Visit [facility] [address] [place] [address] Venkata Aviles MD [address] [place] [address] Health Maintenance Due Date Last Done Comments CT Colonography 1964 Colonoscopy 1964 FIT DNA/Cologuard 1964 FOBT 1964 HIV Screening 1964 Sigmoidoscopy 1964 Hepatitis C Screening 1982 Colorectal Cancer Screening 05/08/2022 FIT 05/08/2022 05/08/2021 COVID-19 Vaccine ( season) 2025 07/01/2021, 12/25/2020, 11/25/2020 Influenza Vaccine (#1) 2025 , 08/23/2019, 05/04/2018, Additional history exists SDOH Screening 06/16/2025 06/16/2024 Alcohol/Substance Use Screening 06/27/2026 06/27/2025 Depression Screening 06/27/2026 06/27/2025, 06/27/20 25 Disability Screening 06/27/2026 06/27/2025 Tobacco Screening 06/27/2026 06/27/2025 Lipid Panel 12/24/2028 12/25/2023, 01/02, 10/17/2020 DTaP/Tdap/Td [...] patient's age to complete this topic Meningococcal B Vaccine Aged Out No l onger eligible based on patient's age to complete [...] Pressure < 140/90 Blood Pressure Benign hypertension 138/74(2024 10:50 AM EST) No John Lazar, Keith Procedures Procedure Name Priority Date/Time Associated Diagnosis Comments AUTOMATED VISUAL FIELD, EXTENDED - OU - BOTH EYES Routine 04/21/2025 11:54 AM EDT Glaucoma suspect of both eyes LIPID PANEL, STANDARD Routine 12/25/2023 8:21 AM EDT from Last 3 Months or Most Recently Relevant to Health Maintenance Results * Automated Visual Field, Extended - OU - Both Eyes (04/21/2025 11:54 AM EDT) Narrative AleksandrJuan Cn, OD - 04/21/2025 11:54 AM EDT VISUAL FIELD INTERPRETATION Visual Field Interpretation Test Details: Reliability Indices: False positive errors OD: 0/8 OS: 0/7 False negative errors OD: 0/9 OS: 0/8 Statistical Indices: MS [src]: OD: 21.4 OS: 21.9 MD [< 2.0 src]: OD: 0.2 OS: -0.2 sLV [< 2.5 src]: OD: 1.8 OS: 2.2 Impression: Reason for testing: Glaucoma suspect in both eyes due to large optic nerve cupping in both eyes and inferior/temporal RNFL loss on OCT in both eyes. Test Reliability: Good reliability. No false negatives/positives. Impression: Right eye (OD): isolated (1 point) defect superonasally in periphery, isolated (1 point) shallow defect inferonasal in central vision Left eye (OS): possible early superior altitudinal defect (defect is shallow), isolated (1 point) shallow defect superotemporal central vision Progression: No other tests available for progression. Management Plan: Return in 4 months for repeat visual field to see if left superior defect is repeatable. us Pat Brandon OD OPHTH VISUAL FIELD Final Resu lt * (ABNORMAL) Lipid Panel, Standard (12/25/2023 8:21 AM EDT) Triglycerides 248(H) <150 mg/dL [facility] Comment:Desirable Triglyceri de: less than 150 mg/dLBorderline High Triglyceride 150-199 mg/dLHigh Triglyceride: 200-499 mg/dLVery High Triglyceride: greater than or equal to 5OO mg/dL Cholesterol 148 <200 mg/dL [facility] Comment:Desirable Cholestero l: less than 200 mg/dLBorderline High Cholesterol: 200-239 mg/dLHigh Cholesterol: greater than 239 mg/dL LDL Cholesterol Calculated 62 <100 mg/dL [facility] Comment:Desirable LDL: less than 100 mg/dLNear Optimal/Above Optimal LDL: 110- 129 mg/dLBorderline High LDL: 130-159 mg/dLHigh LDL: 160-189 mg/dLVery High LDL: greater than or equal to 190 mg/dL HDL Cholesterol 37(L) >40 mg/dL [facility] Comment:Desirable HDL: great er than 40 mg/dL Note: This HDL assay may give artificially low results in patients with liver disease. 12/25/2023 8:21 AM EDT 12/25/2023 11:11 AM EDT Venkata Warren MD LAB BLOOD ORDERABLES Final Result [facility] [address] [place] [address] [phone] from Last 3 Months or Most Recently Relevant to Health Maintenance Insurance [facility] C3 Care Teams Wiping Cloth Cutter Relationship Specialty Start Date End Date Venkata Aviles MD [address] [place] [phone] PCP - General Internal Medicine 05/17/14
--- OUTSIDE RECORDS SUMMARY | 2025-07-03 08:15 | XMS_ITS | Encounter Summary ---
Author Organization [employer] Address [address] [facility] 7t [place] [address] Care Team Providers Care Change Number Operator Name Role Phone Venkata Aviles MD Primary Care Provide r John Lazar PharmD Unavailable [phone] Paula Reyes PharmD Unavailable [phone] Reason for Visit * Reason Comments Med Refill Encounter Details Date Type Department Care Team (Late st Contact Info) Description 10/20/2022 Refill [facility] [address] [place] [address] Venkata Aviles MD [address] [place], [place] [phone] Social History Tobacco Use Types Packs/Day Years [...] Description 08/23/2025 11:30 AM EST Office Visit [facility] [address] [place], [place] [phone] Aleksandr, Pat, OD [address] [place] [address] 09/28/2025 11:15 AM EST Office Visit [facility] [address] [place] [address] Venkata Aviles MD [address] [facility] [place] [address] documented as of this encounter Visit Diagnoses Not on filedocumented in this encounter Care Teams Change Number Operator Relationship Specialty Start Date End Date Venkata Aviles MD [address] [place] [address] PCP - General Internal Medicine 05/17/14 John Lazar PharmD [address] [facility] [place] [address] Pharmacist Internal Medicine 12/15/22 11/06/24 Paula Reyes, CamachoD [address] [place] [address] Pharmacist Internal Medicine 11/07/24 04/16/25 documented as of this encounter
--- OUTSIDE RECORDS SUMMARY | 2025-07-03 08:15 | XMS_ITS | Encounter Summary ---
Author Organization [employer] Address [address] [facility] 7t [place] [address] Care Team Providers Care Shop Superintendent Name Role Phone Venkata Aviles MD Primary Care Provide r John Lazar PharmD Unavailable [phone] Paula Reyes PharmD Unavailable [phone] Reason for Visit * Reason Comments Med Refill Encounter Details Date Type Department Care Team (Late st Contact Info) Description 06/02/[address] [facility] [address] [place] [address] Princess Munoz MD [address] [place] [address] Hypertriglyceridemia Social History Tobacco Use Types Packs/Day [...] Description 08/23/2025 11:30 AM EST Office Visit [facility] [address] [place] [address] Pat Brandon, OD [address] [place] [address] 09/28/2025 11:15 AM EST Office Visit [facility] [address] [place] [address] Venkata Aviles MD [address] [place] [address] documented as of this encounter Goals Goal Patient Goal Type Associated Problems Recent Progress Patient-Stated? Author Blood Pressure < 140/90 Blood Pressure Benign hypertension 138/74(2024 10:50 AM EST) No John Lazar, PharmD documented as of this encounter Visit Diagnoses Diagnosis Hypertriglyceridemia Pure hyperglyceridemia documented in this encounter Care Teams Shop Superintendent Relationship Specialty Start Date End Date [place] [address] PCP - General Internal Medicine 05/17/14 John Lazar, [place] [address] Pharmacist Internal Medicine 12/15/22 11/06/24 Paula Reyes PharmD [address] [place] [phone] Pharmacist Internal Medicine 11/07/24 04/16/25 documented as of this encounter
--- OUTSIDE RECORDS SUMMARY | 2025-07-03 08:15 | XMS_ITS | Encounter Summary ---
Author Organization [facility] Address [address] [facility] [address] [place] [address] Phone Care Team Providers Care Controlled Atmospheric Furnace Brazer Name Role Phone Unknown, Unknown Primary Care Provider Manny garcia Encounter Details Date Type Department Care Team (Latest Contact Info) Description 10/06/2018 Ancillary Orders [facility] [address] [place] [address] [place] [address] Zhou Simon MD [address] [place] [phone] [email or web address] Cardiomyopathy, unspecified type Social History Tobacco Use Types Packs/Day Years Used Date Smoking Tobacco: Never Assessed Sex and Gender Information Value Date Recorded Sex Assigned at Not on file Legal Sex Male 1:16 PM EST Gender Identity Not on file Sexual Orientation Not on file documented as of this encounter Plan of Treatment Not on file documented as of this encounter Results * Holter Monitor 24 Hours (10/06/2018 3:04 PM EST) Anatomical Region Laterality Modality Heart Other Narrative 10/07/2018 12:46 PM EST 24-hour monitor: Baseline rhythm is sinus with a minimum heart rate of 50, maximum 128, average 76 bpm. Occasional PACs and PVCs present, a total of 360 PVCs during the 24 hours, slightly above the normal amount of 240 PVCs per 24 hours. There was no diary submitted. There were no patient event markers. Impression: Except for minimal increase in frequency of PVCs, normal 24-hour monitor. No diary submitted. Procedure Note Wilmer Whittington MD - 10/07/2018 24-hour monitor: Baseline rhythm is sinus with a minimum heart rate of 50,maximum 128, average 76 bpm. Occasional PACs and PVCs present, a total of360 PVCs during the 24 hours, slightly above the normal amount of 240 PVCsper 24 hours. There was no diary submitted. There were no patient eventmarkers. Impression: Except for minimal increase in frequency of PVCs, [id number] monitor. No diary submitted. Zhou Simon MD [facility] Final Result documented in this encounter Visit Diagnoses Diagnosis Cardiomyopathy, unspecified type documented in this encounter Care Teams Controlled Atmospheric Furnace Brazer Relationship Specialty Start Date End Date Unknown, Unknown, PCP - General 10/06/18 documented as of this encounter Additional Source Comments The information contained in this document represents components of the legal health record. It is not the complete legal health record.[facility]
--- OUTSIDE RECORDS SUMMARY | 2025-07-03 08:15 | XMS_ITS | Encounter Summary ---
Author Organization [facility] Address [address] [place] [address] Phone Care Team Providers Care Shipping Coordinator Name Role Phone Unknown, Unknown Primary Care Provider Manny garcia Encounter Details Date Type Department Care Team (Late st Contact Info) Description 10/06/2018 Ancillary Orders [facility] [address] [facility] 3rd Floor, [address] [place] [address] Zhou Simon MD [address] [place] [address] [email or web address] Social History Tobacco Use Types Packs/Day Years Used Date Smoking Tobacco: Never Assessed Sex and Gender Information Value Date Recorded Sex Assigned at Not on file Legal Sex Male 1:16 PM EST Gender Identity Not on file Sexual Orientation Not on file documented as of this encounter Plan of Treatment Not on file documented as of this encounter Visit Diagnoses Not on filedocumented in this encounter Care Teams Shipping Coordinator Relationship Specialty Start Date End Date Unknown, Unknown, PCP - General 10/06/18 documented as of this encounter Additional Source Comments The information contained in this document represents components of the legal health record. It is not the complete legal health record.[facility]
--- OUTSIDE RECORDS SUMMARY | 2025-07-03 08:15 | XMS_ITS | Encounter Summary ---
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 Name Role Phone Venkata Aviles MD Primary Care Provide r John Lazar PharmD Unavailable [phone] Paula Reyes PharmD Unavailable [phone] Reason for Visit * Reason Comments Med Refill Encounter Details Date Type Department Care Team (Late Contact Info) Description 10/02/2023 Refill [facility] [address] [place] [address] Venkata Aviles MD [address] [place], [place] [phone] Primary hypertension Social History Tobacco Use Types [...] Department Care Team (Late Contact Info) Description 08/23/2025 11:30 AM EST Office Visit [facility] [address] [place], [place] [phone] Pat Brandon, OD [address] [place] [address] 09/28/2025 11:15 AM EST Office Visit [facility] [address] [place] [address] Venkata Aviles MD [address] [place] [phone] documented as of this encounter Goals Goal Patient Goal Type Associated Problems Recent Progress Patient-Stated? Author Blood Pressure < 140/90 Blood Pressure Benign hypertension 138/74(2024 10:50 AM EST) No John Lazar, PharmD documented as of this encounter Visit Diagnoses Diagnosis Primary hypertension Unspecified essential hypertension documented in this encounter Care Teams Box Blank Machine Operator Helper Relationship Specialty Start Date End Date Venkata Aviles MD [address] [place] [phone] PCP - General Internal Medicine 05/17/14 John Lazar, PharmD [address] [place] [phone] Pharmacist Internal Medicine 12/15/22 11/06/24 Paula Reyes, CamachoD [address] [place] [id number] Pharmacist Internal Medicine 11/07/24 04/16/25 documented as of this encounter
--- OUTSIDE RECORDS SUMMARY | 2025-07-03 08:16 | XMS_ITS | Clinical Summary ---
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 Not on brenden e 11/28/2022 Are you concerned about learning? Not on file 11/28/2022 No 11/28/2022 No 11/28/2022 Digital Access Answer Date Recorded No 12/30/2022 No 12/30/2022 No 12/30/2022 Reliable internet access at home? Not on file 12/30/2022 Device with a working camera? Not on file Sex and Gender Information Value Date Recorded Sex Assigned at Not on file Legal Sex Male 1:16 PM EST Gender Identity Not on file Sexual Orientation Not on file Plan of Treatment Not on file Medical Devices Not on file Insurance [address] [place] [address] [facility] [address] [place] [address] [employer] [facility] [employer] Care Teams Vinyl Installer Relationship Specialty Start Date End Date Unknown, Unknown, PCP - General 10/06/18 Additional Source Comments The information contained in this document represents components of the legal health record. It is not the complete legal health record.[facility]
[2025-07-03 12:27] LABS: Alanine Aminotransferase 58 U/L (0-40); Albumin Level 4.2 g/dL (3.5-5.0); Alkaline Phosphatase 68 U/L (39-117); Anion Gap 11 (12-20); Aspartate Amino Transferase 71 U/L (5-37); Blood Urea Nitrogen 12 mg/dL (9-16); Calcium 8.9 mg/dL (8.4-10.2); Carbon Dioxide 29 mmol/L (22-29); Chloride 105 mmol/L (96-108); Cholesterol 170 mg/dL (<200); Estimated Glomerular Filt Rate > 60; HDL Cholesterol 49 mg/dL (>40); Potassium 4.1 mmol/L (3.3-5.1); Sodium 141 mmol/L (135-145); Total Protein 7.4 g/dL (6.5-8.0); Triglycerides 194 mg/dL (<150)
== END 2025-07-03 08:07 | disposition home or self-care (01) ==
LOC: HO.HHCL 08:06
PROVIDERS: PCP Internal Medicine; Visit Provider Internal Medicine
DX: Z00.00 Encounter for general adult medical examination without abnormal findings (principal); E78.1 Pure hyperglyceridemia; E03.9 Hypothyroidism, unspecified; I10 Essential (primary) hypertension
CPT/HCPCS: 36415; 80053; 80061; 84153; 84443